=== PATIENT | female | born 1935 | race Caucasian/White ===

== ENCOUNTER 2017-03-25 17:06 | Emergency (ER) | payer OTHER, MEDICARE ==
[~2017-03-25] VITALS: Ht 157.5 cm; Wt 72.6 kg
[2017-03-25] MEDS ORDERED: LEVOTHYROXINE0.05 MG PO (18:11)
[2017-03-25] MEDS ORDERED: MOBIC15 MG PO (18:12)
[2017-03-25] MEDS ORDERED: VENTOLIN HFA 1818 GM INH (18:14)
[2017-03-25] MEDS ORDERED: PAXIL10 MG PO (18:14)
[2017-03-25] MEDS ORDERED: VOLTAREN GEL 1100 G2 TOP (18:14)
[2017-03-25] MEDS ORDERED: CLARITIN10 MG PO (18:15)
[2017-03-25] MEDS ORDERED: FLONASE ALLERG9.9 ML NS (18:15)
[2017-03-25] MEDS ORDERED: SINGULAIR 10 MG10 M1 PO (18:15)
[2017-03-25 18:29] VITALS: BP 144/87
[2017-03-25 18:43] LABS: ABSOLUTE NEUTROPHILS 4.3 thou/uL (1.4-8.2); BASOPHILS 0.2 % (0.0-2.0); EOSINOPHILS 1.2 % (0.0-3.0); HEMATOCRIT 28.8 % (37.0-47.0); MCH 31.2 pg (26.0-34.0); MCHC 34.7 g/dL (28.0-37.0); MONOCYTES 8.8 % (1.0-8.0); PLATELET COUNT 278 thou/uL (150-400); POLYS 68.8 % (36.0-66.0); WBC 6.2 thou/uL (4.0-11.0)
[2017-03-25 18:44] LABS: MANUAL DIFF NO
[2017-03-25 18:47] LABS: CALCIUM 9.2 mg/dL (8.5-10.1); CREATININE 0.7 mg/dL (0.6-1.0); POTASSIUM 4.6 mmol/L (3.5-5.1)
[2017-03-25] MEDS ORDERED: SENOKOT-S1 TA1 PO (18:52)
[2017-03-25] MEDS ORDERED: NORCO 5-325 TA1 EACH PO (19:06)
== END 2017-03-25 19:19 | disposition home or self-care (01) ==
LOC: ER 17:06
PROVIDERS: Physician Assistant
DX: M19.90 Unspecified osteoarthritis, unspecified site (principal); R53.1 Weakness; D64.9 Anemia, unspecified; E03.9 Hypothyroidism, unspecified; Z98.890 Other specified postprocedural states; Z88.1 Allergy status to other antibiotic agents; Z88.0 Allergy status to penicillin; Z88.8 Allergy status to other drugs, medicaments and biological substances

== ENCOUNTER → 2019-12-06 | Outpatient (CLI) | payer OTHER, MEDICARE ==
[~2019-12-06] MED LIST: CLARITIN10 MG PO; FLONASE ALLERG9.9 ML NS; LEVOTHYROXINE0.05 MG PO; MOBIC15 MG PO; NORCO 5-325 TA1 EACH PO; PAXIL10 MG PO; SENOKOT-S1 TA1 PO; SINGULAIR 10 MG10 M1 PO; VENTOLIN HFA 1818 GM INH; VOLTAREN GEL 1100 G2 TOP
== END ==
LOC: SJCVCIMAG 14:35 → SJCVC 14:35
DX: I08.0 Rheumatic disorders of both mitral and aortic valves (principal); R94.31 Abnormal electrocardiogram [ECG] [EKG]; R06.02 Shortness of breath; I50.32 Chronic diastolic (congestive) heart failure; E78.5 Hyperlipidemia, unspecified; M35.3 Polymyalgia rheumatica; D47.2 Monoclonal gammopathy; E03.9 Hypothyroidism, unspecified; M19.90 Unspecified osteoarthritis, unspecified site; F32.9 Major depressive disorder, single episode, unspecified; Z79.899 Other long term (current) drug therapy

== ENCOUNTER → 2020-04-07 | Outpatient (CLI) | payer OTHER, MEDICARE | LOC: SJCVC 12:52 | PROVIDERS: ATTEND Internal Medicine | DX: I11.0 Hypertensive heart disease with heart failure (principal); I50.22 Chronic systolic (congestive) heart failure; I42.0 Dilated cardiomyopathy; E78.5 Hyperlipidemia, unspecified; M35.3 Polymyalgia rheumatica; D47.2 Monoclonal gammopathy; E03.9 Hypothyroidism, unspecified; M19.90 Unspecified osteoarthritis, unspecified site; Z79.899 Other long term (current) drug therapy ==

== ENCOUNTER → 2020-10-09 | Outpatient (CLI) | payer OTHER, MEDICARE | LOC: SJCVC 13:00 | PROVIDERS: ATTEND Internal Medicine | DX: R94.31 Abnormal electrocardiogram [ECG] [EKG] (principal); I11.0 Hypertensive heart disease with heart failure; I50.22 Chronic systolic (congestive) heart failure; I42.0 Dilated cardiomyopathy; E78.5 Hyperlipidemia, unspecified; M35.3 Polymyalgia rheumatica; D47.2 Monoclonal gammopathy; M19.90 Unspecified osteoarthritis, unspecified site; Z79.899 Other long term (current) drug therapy; Z88.0 Allergy status to penicillin; Z88.5 Allergy status to narcotic agent; Z88.1 Allergy status to other antibiotic agents; Z88.8 Allergy status to other drugs, medicaments and biological substances ==

== ENCOUNTER → 2021-01-02 | Outpatient (CLI) | payer OTHER, MEDICARE | LOC: SJCVCIMAG 12:00 | PROVIDERS: ATTEND Internal Medicine | DX: I08.0 Rheumatic disorders of both mitral and aortic valves (principal); R06.00 Dyspnea, unspecified; E78.5 Hyperlipidemia, unspecified ==

== ENCOUNTER 2021-02-04 10:32 | Inpatient (IN) | payer OTHER, MEDICARE ==
[2021-01-29 13:43] LABS: HEMATOCRIT 28.9 % (37.0-47.0); HEMOGLOBIN 9.7 gm/dL (12.0-15.0); MCH 35.4 pg (26.0-34.0); MCHC 33.7 g/dL (28.0-37.0); MCV 105.2 fL (80.0-100.0); RBC 2.75 mil/uL (4.20-5.00); RDW 14.6 % (10.5-14.5); WBC 6.8 thou/uL (4.0-11.0)
[2021-01-29 13:47] LABS: URINE BILIRUBIN NEGATIVE (Negative); URINE BLOOD NEGATIVE (Negative); URINE CLARITY CLEAR; URINE COLOR YELLOW; URINE GLUCOSE-RANDOM* NEGATIVE (Negative); URINE KETONES NEGATIVE (Negative); URINE LEUKOCYTES-REFLEX NEGATIVE (Negative); URINE NITRITE-REFLEX NEGATIVE (Negative); URINE PROTEIN (DIPSTICK) NEGATIVE (Negative); URINE SPECIFIC GRAVITY >= 1.030 (1.005-1.035); URINE UROBILINOGEN 0.2 E.U./dl (0.2-1.0)
[2021-01-29 13:56] LABS: PROTIME 10.9 Seconds (10.5-12.1)
[2021-01-29 14:14] LABS: ALBUMIN 3.5 g/dL (3.4-5.0); CALCIUM 9.1 mg/dL (8.5-10.1); POTASSIUM 4.8 mmol/L (3.5-5.1)
[~2021-02-04] VITALS: Ht 121.9 cm; Wt 61.7 kg
--- NOTE | ~2021-02-04 | O ---
[facility] [place] [address] OPERATIVE REPORT Name: EMA FIELDS Room #: 150-5 [facility] M.R.#: [id number] Admission: 02/04/21 Attend Phys: Héctor Robert MD Discharge: Date of : 33 Report #: [id number] THIS REPORT FOR: cc: Harmony Mera MD, Michelle R. MD Abraham,Héctor Kim MD ~ DOC #: [id number] Héctor Robert MD DATE OF SERVICE: 02/04/2021 PREOPERATIVE DIAGNOSIS: Left hip osteoarthritis. POSTOPERATIVE DIAGNOSIS: Left hip osteoarthritis. PROCEDURE: Left total hip arthroplasty. SURGEON: Héctor Robert MD. RESIDENT ENGINEER: Yany Polo PA-C INDICATIONS FOR RESIDENT ENGINEER: Throughout the case, extensive retraction, manipulation of the hip including dislocation and reduction was required. This was afforded to me by my visitor services information assistant. ANESTHESIA: LMA. IMPLANTS: [employer] size 48 R3 acetabular cup with 1 acetabular screw size 9, high offset Synergy cemented stem size 32+4 cobalt chrome head. ESTIMATED BLOOD LOSS: 50 mL COMPLICATIONS: None. SPECIMENS: None. CONDITION UPON LEAVING THE OR: Stable. INDICATIONS FOR PROCEDURE: The patient is an 85-year-old female with severe left hip osteoarthritis, failed conservative measures for this and after discussion with her, she elected for left total hip arthroplasty. DESCRIPTION OF PROCEDURE: Risks, benefits, alternatives, complications were discussed in detail with the patient including but not limited to risk of anesthesia; risk of damage to nerves, arteries, blood vessels; risk for infection, bleeding; risk for leg length discrepancy, instability and need for reoperation. [facility] [address] [place] [address] OPERATIVE REPORT Name: EMA FIELDS Room #: 150-5 [facility].#: [id number] Admission: 02/04/21 Attend Phys: Héctor Robert MD Discharge: Date of : 33 Report #: [id number] DESCRIPTION OF PROCEDURE: Informed consent was obtained from the patient. The left hip was appropriately marked in the preoperative holding area. IV vancomycin was given for preoperative antibiotics. She was brought to the operating room and placed in supine position on the operating table. LMA anesthesia was induced without complication. She was then placed in the right lateral decubitus position with the left hip uppermost. Left hip and lower extremity were prepped and draped in normal sterile fashion. Timeout was performed properly identifying the patient and procedure as well as instrumentation and implants. All in the operating room in agreement. Standard posterior approach to the hip was made with 10 blade through the skin. Dissection was taken down to the fascia with Bovie cautery. Reyes elevator was used to clean the fascia. Fresh 10 blade was used to make a fascial incision. This was taken proximally and distally with curved Herndon scissor. Charnley retractor was placed. Trochanteric bursa was taken down with Bovie cautery. Piriformis tendon was identified, tagged and taken down with Bovie cautery. Short external rotators were also taken down with Bovie cautery. Capsulotomy was made and capsule ends were tagged for later repair. Hip was dislocated. There was extensive osteoarthritic change of the femoral head. Femoral neck cut was made 1 cm proximal to lesser trochanter based on preoperative templating and the femoral head was removed. Deep acetabular retractors were placed. Labrum was removed sharply. Pulvinar was removed with Bovie cautery. Acetabulum was then sequentially reamed up to a size 48, at which point there was excellent bleeding cancellous bone. A size 47 trial cup was placed, found to have a good fit. The final size 48 R3 acetabular cup was placed and seated, 1 acetabular screw was placed for backup fixation of polyethylene liner where 32 head was placed. Attention was turned to the femur. This was reamed and broached up to a size 9, at which point the size 9 broach was stable, was trialed with a high offset neck and a 32+0 head. Hip was reduced, taken through range of motion, found to be stable, found to be somewhat short on left compared to the right, it was felt we could make up for this with the final implant. Broach was removed and the femoral canal was prepared. A final size 9 Synergy high offset cemented stem was cemented in place using standard cementation techniques. While the cement cured, a periarticular injection consisting of morphine, ropivacaine, epinephrine and Toradol was placed around the hip joint capsule. After the cement cured, this was trialed with a 32+4 head. Hip was reduced, taken through range of motion, found to be stable, found to have equal leg lengths. Hip was dislocated one last time. A final size 32+4 cobalt chrome head was placed. Hip was reduced, taken through range of motion, found to be stable, found to have equal leg lengths. Wound was thoroughly irrigated with normal saline. A gram of vancomycin was placed deep in the joint. The capsule and piriformis were repaired with 0 FiberWire. Fascia was closed with 0 Vicryl. Skin was closed with 2-0 Vicryl, 3-0 Monocryl, Dermabond and a ALEXANDRO dressing was applied. The patient tolerated this procedure well and went to recovery room under care of anesthesia postoperatively. [address] [address] OPERATIVE REPORT Name: EMA FIELDS Room #: 150-5 [facility] M..#: [id number] Admission: 02/04/21 Attend Phys: Héctor Robert MD Discharge: Date of : 33 Report #: [id number] MD LORENA Mullins/AMANDO By: [id number] Héctor Robert MD /nt
[~2021-02-04 10:32] MED LIST changes: +ACETAMINOPHEN650 M5 PO; +CARVEDILOL3.125 MG PO; +COZAAR 25 MG TA25 M1 PO; +FOLIC ACID1 MG PO; +HYDROXYCHLOROQ200 M1 PO; +K-DUR10 MEQ PO; +METHOTREXATE 22.5 M1 PO; +PREDNISONE 5 MG5 MG PO; +SYNTHROID50 MCG PO; +TORSEMIDE10 MG PO
[2021-02-04 11:27] VITALS: BP 116/59
[2021-02-04 17:50] VITALS: BP 131/56
[2021-02-04 18:05] VITALS: BP 131/56
[2021-02-04 18:22] VITALS: BP 140/68
[2021-02-04 20:08] VITALS: BP 114/51
[2021-02-05 05:35] VITALS: BP 128/50
[2021-02-05 05:56] LABS: HEMATOCRIT 24.9 % (37.0-47.0); HEMOGLOBIN 8.4 gm/dL (12.0-15.0); MCHC 33.8 g/dL (28.0-37.0); MCV 106.6 fL (80.0-100.0); RBC 2.34 mil/uL (4.20-5.00); RDW 14.4 % (10.5-14.5); WBC 10.8 thou/uL (4.0-11.0)
[2021-02-05 07:40] VITALS: BP 116/54
[2021-02-05 20:53] VITALS: BP 120/54
[2021-02-06 05:28] LABS: HEMATOCRIT 25.4 % (37.0-47.0); HEMOGLOBIN 8.4 gm/dL (12.0-15.0); MCH 35.7 pg (26.0-34.0); MCHC 33.1 g/dL (28.0-37.0); RBC 2.36 mil/uL (4.20-5.00); RDW 14.5 % (10.5-14.5)
[2021-02-06 07:30] VITALS: BP 128/64
[2021-02-06] MEDS ORDERED: BAYER CHEWABLE81 MG PO (12:26)
[2021-02-06] MEDS ORDERED: TRAMADOL 50 MG50 MG PO (12:26)
[2021-02-06 15:50] VITALS: BP 138/67
[2021-02-06 19:12] VITALS: BP 147/69
[2021-02-07 04:17] LABS: MCH 35.4 pg (26.0-34.0); MCHC 33.4 g/dL (28.0-37.0); MCV 106.2 fL (80.0-100.0); RBC 2.26 mil/uL (4.20-5.00); RDW 14.6 % (10.5-14.5); WBC 8.5 thou/uL (4.0-11.0)
[2021-02-07 07:25] VITALS: BP 138/54
[2021-02-07 08:49] VITALS: BP 138/54
== END 2021-02-07 13:46 | DRG 470 ==
LOC: OR → TBA 10:32 → OR 14:18 → 4W 17:21 → OR 19:51 → 4W 19:52
PROVIDERS: Student in an Organized Health Care Education/Training Program; ADMIT Orthopaedic Surgery; ATTEND Orthopaedic Surgery
PROC: 0SRB019 Replacement of Left Hip Joint with Metal Synthetic Substitute, Cemented, Open Approach (ICD-10-PCS; principal; 2021-02-04)
DX: M16.12 Unilateral primary osteoarthritis, left hip (principal); Z20.822 Contact with and (suspected) exposure to COVID-19; Z88.1 Allergy status to other antibiotic agents; Z88.0 Allergy status to penicillin; Z88.8 Allergy status to other drugs, medicaments and biological substances
CPT/HCPCS: 10047; 50010; 50101; 51057; 51130; 51225; 51226; 53367; 54118; 56460; 57095; 57103; 62110; 62900; 70005

== ENCOUNTER → 2021-04-08 | Outpatient (CLI) | payer OTHER, MEDICARE ==
[~2021-04-08] MED LIST changes: +BAYER CHEWABLE81 MG PO; +TRAMADOL 50 MG50 MG PO
== END ==
LOC: SJCVC 14:01
PROVIDERS: ATTEND Internal Medicine
DX: I11.0 Hypertensive heart disease with heart failure (principal); I50.22 Chronic systolic (congestive) heart failure; I42.0 Dilated cardiomyopathy; E78.5 Hyperlipidemia, unspecified; M35.3 Polymyalgia rheumatica; D47.2 Monoclonal gammopathy; E03.9 Hypothyroidism, unspecified; M19.90 Unspecified osteoarthritis, unspecified site; Z88.8 Allergy status to other drugs, medicaments and biological substances; Z79.899 Other long term (current) drug therapy

== ENCOUNTER → 2021-09-28 | Outpatient (CLI) | payer OTHER, MEDICARE ==
[~2021-09-28] MED LIST changes: +FEROSUL325 M1 PO; +VITAMIN D210 MCG PO
[2021-09-28 11:37] LABS: HEMATOCRIT 33.3 % (37.0-47.0); HEMOGLOBIN 11.1 gm/dL (12.0-15.0); MCH 34.5 pg (26.0-34.0); MCHC 33.2 g/dL (28.0-37.0); MCV 103.8 fL (80.0-100.0); RBC 3.21 mil/uL (4.20-5.00); RDW 12.3 % (10.5-14.5)
[2021-09-28 11:54] LABS: INR 0.96; PROTIME 10.5 Seconds (10.5-12.1)
[2021-09-28 11:55] LABS: ALBUMIN 3.6 g/dL (3.4-5.0); CALCIUM 9.4 mg/dL (8.5-10.1); CREATININE 1.1 mg/dL (0.6-1.0); POTASSIUM 4.4 mmol/L (3.5-5.1)
[2021-09-28 13:02] LABS: URINE BILIRUBIN NEGATIVE (Negative); URINE BLOOD NEGATIVE (Negative); URINE CLARITY CLEAR; URINE COLOR YELLOW; URINE GLUCOSE-RANDOM* NEGATIVE (Negative); URINE KETONES NEGATIVE (Negative); URINE LEUKOCYTES-REFLEX NEGATIVE (Negative); URINE NITRITE-REFLEX NEGATIVE (Negative); URINE PROTEIN (DIPSTICK) NEGATIVE (Negative); URINE SPECIFIC GRAVITY 1.025 (1.005-1.035); URINE UROBILINOGEN 0.2 E.U./dl (0.2-1.0)
--- NOTE | 2021-09-28 16:13 | EKG ---
[place] [address] [address] [place] [address] ELECTROCARDIOGRAM REPORT Name: EMA FIELDS [id number] Admission: 09/28/21 Attend Phys: Héctor Robert MD Discharge: Date of : 34 Report #: [id number] [facility] Test Date: 2021-09-28 Test Time: 11:10:11 Pat Name: EMA FIELDS Department: Room: Gender: Security Patrol Driver: JAREDKADE : 1935 Requested By: Héctor Robert Order Number: [id number] MD: Willian Silvestre Measurements Intervals [place] Rate: 64 P: 87 OR: 181 QRS: -37 QRSD: 120 T: 52 QT: 469 QTc: 484 Interpretive Statements Sinus rhythm Nonspecific IVCD with LAD No previous ECG available for comparison Electronically Signed On 09-28-2021 16:13:03 [employer] by Willian Silvestre [email or web address] <ELECTRONICALLY SIGNED> By: Willian Silvestre MD, [facility] 09/28/21 1613 1110 1110 Willian Silvestre MD, FACC /EPI
== END ==
LOC: PAC 09:48
PROVIDERS: ATTEND Orthopaedic Surgery
DX: Z01.812 Encounter for preprocedural laboratory examination (principal); Z01.810 Encounter for preprocedural cardiovascular examination; M16.11 Unilateral primary osteoarthritis, right hip

== ENCOUNTER → 2021-10-14 | Day surgery (SDC) | payer OTHER, MEDICARE ==
[~2021-10-14] VITALS: Ht 149.9 cm; Wt 63.5 kg
[~2021-10-14] MED LIST changes: +COREG6.25 MG PO; +VITAMIN C500 M2 PO; +VITAMIN D325 MC3 PO; +ZINC50 M2 PO
== END | disposition home or self-care (01) ==
LOC: OR
PROVIDERS: ATTEND Orthopaedic Surgery
DX: M16.11 Unilateral primary osteoarthritis, right hip (principal); Z53.8 Procedure and treatment not carried out for other reasons; Z20.822 Contact with and (suspected) exposure to COVID-19; M25.551 Pain in right hip; I11.0 Hypertensive heart disease with heart failure; I50.9 Heart failure, unspecified; E78.5 Hyperlipidemia, unspecified; E03.9 Hypothyroidism, unspecified; Z98.890 Other specified postprocedural states; Z79.899 Other long term (current) drug therapy; Z98.41 Cataract extraction status, right eye; Z98.42 Cataract extraction status, left eye

== ENCOUNTER → 2021-11-04 | Outpatient (CLI) | payer OTHER, MEDICARE ==
[2021-11-04 11:38] LABS: HEMATOCRIT 31.4 % (37.0-47.0); HEMOGLOBIN 10.5 gm/dL (12.0-15.0); MCH 34.5 pg (26.0-34.0); MCHC 33.5 g/dL (28.0-37.0); MCV 102.9 fL (80.0-100.0); RBC 3.05 mil/uL (4.20-5.00); RDW 12.7 % (10.5-14.5); WBC 7.8 thou/uL (4.0-11.0)
[2021-11-04 11:54] LABS: URINE BILIRUBIN NEGATIVE (Negative); URINE BLOOD NEGATIVE (Negative); URINE CLARITY CLEAR; URINE COLOR YELLOW; URINE GLUCOSE-RANDOM* NEGATIVE (Negative); URINE KETONES NEGATIVE (Negative); URINE LEUKOCYTES-REFLEX NEGATIVE (Negative); URINE NITRITE-REFLEX NEGATIVE (Negative); URINE PROTEIN (DIPSTICK) NEGATIVE (Negative); URINE SPECIFIC GRAVITY 1.025 (1.005-1.035); URINE UROBILINOGEN 0.2 E.U./dl (0.2-1.0)
[2021-11-04 12:13] LABS: ALBUMIN 3.3 g/dL (3.4-5.0); CALCIUM 9.1 mg/dL (8.5-10.1); POTASSIUM 4.2 mmol/L (3.5-5.1)
[2021-11-04 12:27] LABS: INR 0.99; PROTIME 10.8 Seconds (10.5-12.1)
== END ==
LOC: PAC 09:42
PROVIDERS: ATTEND Orthopaedic Surgery
DX: Z01.812 Encounter for preprocedural laboratory examination (principal); M16.11 Unilateral primary osteoarthritis, right hip